=== PATIENT | male | born 1955 | race Caucasian/White ===

== ENCOUNTER → 2022-07-06 | Outpatient (CLI) | payer MEDICARE, OTHER | LOC: ORTHO 09:44 | PROVIDERS: ATTEND Orthopaedic Surgery | DX: M17.12 Unilateral primary osteoarthritis, left knee (principal); S83.282A Other tear of lateral meniscus, current injury, left knee, initial encounter; X58.XXXA Exposure to other specified factors, initial encounter | CPT/HCPCS: 99203 ==

== ENCOUNTER 2022-09-01 05:33 | Outpatient (CLI) | payer MEDICARE, OTHER ==
[~2022-09-01] VITALS: Ht 188 cm; Wt 112.0 kg
[2022-09-05] MEDS ORDERED: DICY10CA12 PO (12:57)
[2022-09-05] MEDS ORDERED: ATOR40TA70 PO (12:57)
[2022-09-05] MEDS ORDERED: FLUT9.9S NS (12:57)
[2022-09-05] MEDS ORDERED: COLE1TAB PO (12:57)
[2022-09-05] MEDS ORDERED: ASPI-999 PO (12:57)
[2022-09-05] MEDS ORDERED: ALLO300T2 PO (12:57)
[2022-09-05] MEDS ORDERED: MV-M1TAB20 PO (13:06)
[2022-09-05] MEDS ORDERED: ZINC50TA51 PO (13:06)
[2022-09-05] MEDS ORDERED: LISI20TA26 PO (13:06)
[2022-09-05] MEDS ORDERED: MELO7.5T46 PO (13:06)
[2022-09-05] MEDS ORDERED: HYDR-3817 PO (13:06)
[2022-09-05] MEDS ORDERED: LORA10TA7 PO (13:06)
[2022-09-05] MEDS ORDERED: HYDR12.56 PO (13:06)
[2022-09-05] MEDS ORDERED: VITA100033 PO (13:06)
[2022-09-05] MEDS ORDERED: IBUP-1773 PO (13:06)
[2022-09-05] MEDS ORDERED: POTA99TA26 PO (13:06)
[2022-09-05] MEDS ORDERED: ZOLP5TAB PO (13:06)
[2022-09-05] MEDS ORDERED: GLUC15006 PO (13:06)
[2022-09-05] MEDS ORDERED: KRIL1CAP29 PO (13:06)
== END 2022-09-05 13:35 | disposition home or self-care (01) ==
LOC: PREOP 05:33
PROVIDERS: ATTEND Orthopaedic Surgery
DX: Z01.818 Encounter for other preprocedural examination (principal)

== ENCOUNTER 2022-09-08 06:10 | Day surgery (SDC) | payer MEDICARE, OTHER ==
[2022-09-08] VITALS (10 sets, daily range): BP systolic 104–127; BP diastolic 79–95
[~2022-09-08] VITALS: Ht 188 cm; Wt 112.0 kg
[~2022-09-08 06:10] MED LIST: ALLO300T2 PO; ASPI-999 PO; ATOR40TA70 PO; COLE1TAB PO; DICY10CA12 PO; FLUT9.9S NS; GLUC15006 PO; HYDR-3817 PO; HYDR12.56 PO; IBUP-1773 PO; KRIL1CAP29 PO; LISI20TA26 PO; LORA10TA7 PO; MELO7.5T46 PO; MV-M1TAB20 PO; POTA99TA26 PO; VITA100033 PO; ZINC50TA51 PO; ZOLP5TAB PO
[2022-09-08] MEDS ORDERED: ceFAZolin INJECTION 2,000 MG in NS (IVPB) 50 ML IV ONE (06:15)
[2022-09-08] MEDS ORDERED: LACTATED RINGERS 1,000 ML IV PRN (06:15)
[2022-09-08] MEDS ORDERED: LIDOCAINE PF 2% 5 ML (XYLOCAINE) VIAL ONE (07:00)
[2022-09-08] MEDS ORDERED: ONDANSETRON 4 MG/2 ML (SDV) Z0FRAN ONE (07:00)
[2022-09-08] MEDS ORDERED: proPOfol 200 MG/20 ML (DIPRIVAN) VIAL IV ONE (07:00)
[2022-09-08] MEDS ORDERED: MIDAZOLAM 2 MG/2 ML (VERSED) VIAL ONE (07:00)
[2022-09-08] MEDS ORDERED: SEVOFLURANE (ULTANE) 15 ML INHAL SOLN ONE ×2 (07:00→08:23)
[2022-09-08] MEDS ORDERED: fentaNYL INJ 100 MCG/2 ML AMP ONE (07:00)
[2022-09-08] MEDS ORDERED: LIDOCAINE/EPI 1%-1:100,000 (XYLOCAINE) 20ML ONE (07:37)
[2022-09-08] MEDS ORDERED: BUPIVACAINE 0.25% 30 ML (SENSORCAINE) VIAL ONE (07:37)
[2022-09-08] MEDS ORDERED: PHENYLEPHRINE 100 MCG/ML 10 ML (ANESTHESIA) SYR ONE (07:55)
[2022-09-08] MEDS ORDERED: KETOROLAC 30 MG/ML VIAL ONE (08:08)
--- NOTE | 2022-09-08 08:41 | Operative Report - Ortho ---
Operative Report Surgeon (s)/Diet Therapist (s) Surgeon MIGUEL GARRISON MD Diet Therapist n/a Pre-Operative Diagnosis LEFT LATERAL MENISCUS TEAR Post-Operative Diagnosis Left Lateral Meniscus Tear, Medial Plica Operative Report Date of Procedure: Sep 08, 2022 Name of Procedure Performed: Left Knee Arthroscopy with Partial Lateral Meniscectomy and Resection of Medial Plica Resection Description & Findings After obtaining informed consent and marking the patient in the preoperative holding area, the patient was administered IV antibiotics and taken to the operating room. General anesthesia was induced. The right lower extremity was placed in the well leg pulido and the left leg was placed in the arthroscopic pulido. Surgical timeout was taken. The left lower extremity was prepped and draped in the usual sterile fashion. An anterolateral portal was established and a diagnostic knee arthroscopy was performed with the following findings: the patellofemoral portion of the joint demonstrated grade II change, the patella tracked well through the trochlear groove, there was a medial plica hooding the medial femoral condyle, the gutters were free of loose bodies, the medial meniscus was intact, grade IV change in the medial compartment, ACL was intact, lateral compartment with anterior horn lateral meniscus tear and intact articular cartilage. An anteromedial portal was established. Probe was inserted and the meniscal tear was explored. Shaver was inserted and the meniscal tear was debrided to a stable border. Probe was reinserted and confirmed that the mensicectomy was stable. The shaver was then taken into the suprapatellar pouch. The medial plica was debrided back to the edge of the synovial lining. Instruments were withdrawn. Wounds were closed with 3-0 nylon and dressed with xeroform, 4x4s, ABD, cast padding, and STEPHY wrap. Patient tolerated the procedure well and was stable to the recovery room. Anesthesia Type General Estimated Blood Loss minimal Specimen(s) collected/removed None MIGUEL GARRISON MD Sep 08, 2022 08:41
[2022-09-08] MEDS ORDERED: LIDOCAINE/EPI 1%-1:100,000 (XYLOCAINE) 20ML INJ ONE (08:43)
[2022-09-08] MEDS ORDERED: ONDANSETRON 4 MG/2 ML (SDV) Z0FRAN IVP PRN (08:45)
[2022-09-08] MEDS ORDERED: HYDROmorphone 2 MG/ML VIAL (DILAUDID) IV ONE (08:45)
[2022-09-08] MEDS ORDERED: BUPIVACAINE 0.25% 30 ML (SENSORCAINE) VIAL INJ ONE (08:46)
--- NOTE | 2022-09-08 09:22 | Anesthesia-General Post-Op ---
General Patient Condition Mental Status/LOC: Same as Preop Cardiovascular: Satisfactory Nausea/Vomiting: Absent Respiratory: Satisfactory Pain: Controlled Complications: Absent Post Op Complications Complications None Follow Up Care/Instructions Patient Instructions None needed. Anesthesia/Patient Condition Patient Condition Patient is doing well, no complaints, stable vital signs, no apparent adverse anesthesia problems. No complications reported per nursing. [place] [facility] [place]: Yes SHILA MENDOZA CRNA Sep 08, 2022 09:22
[2022-09-08] MEDS ORDERED: ACHD5005 PO (11:02)
--- NOTE | 2022-09-08 11:17 | Physical Therapy Ortho Eval ---
PT Orthopedic Evaluation Type of Surgery Knee Scope Prior Level of Function Current Living Status: Significant Other Locomotion (Upon Admit): Independent Motor Control Motor Control: Motor Control WNL ROM ROM: WFL, except focal deficit Strength Strength: WFL Transfer SCALE: Activities may be completed with or without assistive devices. 7-[id number]-[id number] completes the activity by him/herself with no assistance from a helper. 5-Set-up or Clean-up Assistance-helper sets up or cleans up; patient completes activity. [place] assists only prior to or following the activity. 4-Supervision or Touching Assistance-helper provides verbal cues and/or touching/steadying and/or contact guard assistance as patient completes activity. Assistance may be provided throughout the activity or intermittently. 3-Partial/Moderate Assistance-helper does LESS THAN HALF the effort. [place] lifts, holds or supports trunk or limbs, but provides less than half the effort. 2-Substantial/Maximal Assistance-helper does MORE THAN HALF the effort. [place] lifts or holds trunk or limbs and provides more than half the effort. 6-Lapusvkul-mqwcoi does ALL the effort. Patient does none of the effort to complete the activity. Or, the assistance of 2 or more helpers is required for the patient to complete the activity. If activity was not attempted, code reason: 7-Patient Refused. 9-Not Applicable-not attempted and the patient did not perform the activity before the current illness, exacerbation or injury. 10-Not Attempted due to Environmental Limitations-(lack of equipment, weather restraints, etc.). 88-Not Attempted due to Medical Conditions or Safety Concerns. Transfers (B, C, W/C) (QC): 6 Gait Gait Assistive Device: Crutches Right Lower Extremity: Right Weight Bearing Status RLE: Full Weight Bearing Left Lower Extremity: Left Weight Bearing Status LLE: Weight Bearing/Tolerated Gait (QC): 6 Distance: 100' Treatment Rendered Treatment: Gait Train Assessment/Goals Goal Time Frame: 1 Visit Safe Ambulation: Yes Plan Treatment Plan: Discharge, Education, Functional Activity Tolerated, Gait Treatment Duration: evaluation PT/Family Agrees to Plan: Yes Time Time In: 1055 Time Out: 1108 Total Billed Treatment Time: 13 [facility] PT Sep 08, 2022 11:17
== END 2022-09-08 11:20 | disposition home or self-care (01) ==
LOC: SDC 06:10
PROVIDERS: ATTEND Orthopaedic Surgery
DX: S83.282A Other tear of lateral meniscus, current injury, left knee, initial encounter (principal); M67.52 Plica syndrome, left knee; M17.12 Unilateral primary osteoarthritis, left knee
CPT/HCPCS: 87081

== ENCOUNTER → 2022-09-21 | Outpatient (CLI) | payer MEDICARE, OTHER ==
[~2022-09-21] MED LIST changes: +ACHD5005 PO
== END ==
LOC: ORTHO 08:56
PROVIDERS: ATTEND Orthopaedic Surgery
DX: Z47.89 Encounter for other orthopedic aftercare (principal); M17.12 Unilateral primary osteoarthritis, left knee

== ENCOUNTER → 2022-10-24 | Outpatient (CLI) | payer MEDICARE, OTHER ==
[~2022-10-24] MED LIST changes: +DICY-11 PO; -DICY10CA12 PO
== END ==
LOC: ORTHO 09:28
PROVIDERS: ATTEND Orthopaedic Surgery
DX: Z47.89 Encounter for other orthopedic aftercare (principal)